=== PATIENT | male | born 1995 | race Caucasian/White ===

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

== ENCOUNTER → 2017-01-04 | Outpatient (CLI) | payer BC, OTHER ==
--- NOTE | 2017-01-04 11:55 | DIAGNOSTIC IMAGING REPORT ---
Venous Doppler right leg RIGHT VENOUS DOPP LOWER EXT UNILAT CLINICAL HISTORY: R LEG PAIN/SWELLING Right TECHNIQUE: Venous Doppler COMPARISON STUDY: None FINDINGS: Study is negative for deep venous thrombosis. Complex popliteal cyst extending to the upper calf measuring 10 x 5 cm. IMPRESSION: 1. Study is negative for deep venous thrombosis. 2. Complex popliteal cyst extending from the popliteal fossa to the upper calf and measuring 10 x 5 x 2 cm. Electronically signed by: Maverick Lorenzo M.D. 01/04/2017 11:54 AM Dictated Date/Time: 01/04/2017 11:53 AM
== END | disposition home or self-care (01) ==
LOC: C.ULTRBC 11:29
PROVIDERS: ATTEND Physical Medicine & Rehabilitation Sports Medicine
DX: M79.661 Pain in right lower leg (principal); M71.21 Synovial cyst of popliteal space [Baker], right knee

== ENCOUNTER → 2017-12-20 | Outpatient (CLI) | payer BC, OTHER ==
[~2017-12-20] MED LIST changes: +GADAVIST IV PRN; -HYDR-5688 PO
--- NOTE | 2017-12-20 13:50 | DIAGNOSTIC IMAGING REPORT ---
R INJECTION SHOULDER PRE MRI FLUOROSCOPY TIME: HISTORY: Shoulder pain. RIGHT SHOULDER PAIN PROCEDURE: After obtaining written informed consent, the patient was placed supine on the fluoroscopy table. A suitable site for needle insertion was marked using fluoroscopic guidance. The right shoulder was prepped and draped in the usual sterile fashion. 1% lidocaine was used for skin, subcutaneous and deep soft tissue anesthesia. Under intermittent fluoroscopic guidance, a 22 gauge 2.5 inch spinal needle was inserted into the left glenohumeral joint. A total of 14 cc of one-to-one mixture of dilute Magnevist (0.1 cc in 10 cc saline) and Optiray 300 were injected. The needle was then removed. There were no apparent complications. The patient was transported to for further imaging. IMPRESSION: Fluoroscopic-guided right shoulder arthrogram without immediate complication. Total injected volume was 14 cc. MR portion of the examination will be dictated separately. The above report was generated using voice recognition software. It may contain grammatical, syntax or spelling errors. Electronically signed by: Maverick Lorenzo M.D. 12/20/2017 1:49 PM Dictated Date/Time: 12/20/2017 1:48 PM
--- NOTE | 2017-12-20 14:33 | DIAGNOSTIC IMAGING REPORT ---
R UPPER EXT JOINT WITH CLINICAL HISTORY: 22 years-old Male presenting with RIGHT SHOULDER PAIN. TECHNIQUE: Multisequence, multiplanar MR imaging of the right shoulder was performed after the administration of intra-articular contrast. IV contrast: None. COMPARISON: None. FINDINGS: Localizer images: Unremarkable. Bone marrow: Bony edema evident at the acromioclavicular joint primarily in the acromion process, where there is also cystic change evident. Cystic changes also seen at the greater and lesser tuberosities of the humeral head. No other sites of bony edema. Articular cartilage: Articular cartilage preserved. Labrum: Glenoid labrum intact. Biceps and triceps tendons: Long head of the biceps tendon intact, including the biceps-labral complex. Long head of the biceps well seated in the intertubercular groove. Short head of the biceps tendon intact. Long head of the triceps tendon intact. Rotator cuff: Supraspinatus tendon intact. Minimal increased signal intensity within the substance of the insertional fibers of the infraspinatus suggesting tendinosis. Teres minor tendon intact. Subscapularis tendon intact. Acromioclavicular joint: Degenerative changes of the acromioclavicular joint. An os acromiale may be present. Shoulder joint effusion: Expected intra-articular contrast distending the joint. No evidence of stripping of the joint capsule. No significant fluid in the subacromial-subdeltoid bursa. Muscle: Normal muscle bulk and muscle signal intensity. Superficial soft tissue: Infiltration at the anterior subcutaneous tissues of the shoulder at the site of medication administration. IMPRESSION: 1. Degenerative changes at the acromioclavicular joint. An os acromiale may be present. Dedicated shoulder radiographs may help define the presence of an os acromiale, which can be variably symptomatic. 2. No evidence of a labral or tendon tear. 3. Tendinosis of the infraspinatus insertional fibers. Electronically signed by: Edwar Urbina M.D. 12/20/2017 2:32 PM Dictated Date/Time: 12/20/2017 2:24 PM
== END | disposition home or self-care (01) ==
LOC: C.MRIBC 13:14
PROVIDERS: ATTEND Physical Medicine & Rehabilitation Sports Medicine
DX: M25.511 Pain in right shoulder (principal); M75.91 Shoulder lesion, unspecified, right shoulder

== ENCOUNTER → 2017-12-21 | Outpatient (CLI) | payer BC, OTHER ==
[~2017-12-21] MED LIST changes: -GADAVIST IV PRN
== END | disposition home or self-care (01) ==
LOC: C.RDSM 10:42
PROVIDERS: ATTEND Physical Medicine & Rehabilitation Sports Medicine
DX: M25.511 Pain in right shoulder (principal)